=== PATIENT | male | born 1990 | race African-American/Black ===

== ENCOUNTER 2021-08-15 11:46 | Emergency (ER) | payer MEDICAID ==
[~2021-08-15] VITALS: Ht 175.3 cm; Wt 131.0 kg
[2021-08-15] MEDS ORDERED: IBUPROFEN 800MG TABLET PO ONE (12:30)
[2021-08-15 13:20] VITALS: BP 178/100
[2021-08-15] MEDS ORDERED: IBUP-2030 MT (13:23)
== END 2021-08-15 13:39 | disposition home or self-care (01) ==
LOC: ER 11:46
DX: S00.83XA Contusion of other part of head, initial encounter (principal); S86.011A Strain of right Achilles tendon, initial encounter; V49.9XXA Car occupant (driver) (passenger) injured in unspecified traffic accident, initial encounter; Y93.89 Activity, other specified; Y92.89 Other specified places as the place of occurrence of the external cause; Y99.8 Other external cause status
CPT/HCPCS: 71101; 99283